=== PATIENT | female | born 1990 | race Caucasian/White ===

== ENCOUNTER → 2019-01-15 19:00 | Observation (INO) ==
[2019-01-15 17:37] LABS: Bilirubin,Urine Negative (Negative); Blood,Urine Negative (Negative); Clarity,Urine Clear (Clear); Color,Urine Yellow (Yellow); Glucose,Urine (UA) Normal (Normal); Ketones,Urine Negative (Negative); Leukocyte Esterase,Urine Negative (Negative); Nitrite,Urine Negative (Negative); PH,Urine 7.5 pH Units (5.0-8.0); Protein,Urine Negative (Neg-Trace); Specific Gravity,Urine 1.012 (1.010-1.025); Urobilinogen,Urine Normal (Normal)
--- NOTE | 2019-01-15 17:42 | OB/GYN Progress Note ---
Date of Encounter: 01/15/19 Time of Encounter: 17:40 - Assessment and Plan (1) Dizziness Current Visit: Yes Status: Acute CBC and Chem WNL. 2 hour PP accucheck 101. Anemia significantly improved. Discharge home with return precautions. She may follow-up in ER for dizziness. (2) 22 weeks gestation of Current Visit: Yes Status: Acute (3) Anemia complicating in second trimester Current Visit: Yes Status: Acute Subjective - Subjective Interval history: 28 year-old G1 presenting at 22w1d with c/o dizziness. She reports she noticed the dizziness and weakness in her legs upon waking this am. She did not have this previously. She was noted to be anemic at time of labs with hgb 9.3 a that time. SHe takes iron daily and vitamins. SHe denies any other complaints. SHe does note a history of migraines. This is also complicated by obesity with BMI 40. Antepartum ROS: movement normal, no loss of fluid, no vaginal bleeding, no contractions Objective - Vital Signs Vital Signs: Intake and Output 01/15/19 01/15/19 01/15/19 07:59 15:59 23:59 Other: Weight 99.6 kg Patient Weight 01/15/19 23:59 Weight 99.6 kg - Exam FHR: auscultation normal FHR comments: FHT 145 BPM Abdomen: Present: soft, gravid. Absent: tenderness Uterus: Absent: tenderness
[2019-01-15 17:58] LABS: Amphetamine Screen,Urine Negative ng/mL (Cutoff=1000); Barbiturate Screen,Urine Negative ng/mL (Cutoff=200); Benzodiazepines Screen,Urine Negative ng/mL (Cutoff=200); Cannabinoid Screen,Urine Negative ng/mL (Cutoff = 50); Cocaine Screen,Urine Negative ng/mL (Cutoff= 300); Opiate Screen,Urine Negative ng/mL (Cutoff=300); Phencyclidine Screen,Urine Negative ng/mL (Cutoff=25)
[2019-01-15 18:04] LABS: Basophils % 0.4 %; Eosinophils # 0.1 K/mcL (0.0-0.6); Hematocrit 37.4 % (35.3-44.9); Hemoglobin 12.6 g/dL (11.5-15.4); Immature Granulocytes % 0.6 % (0-4); Lymphocytes # 2.3 K/mcL (0.6-4.6); Lymphocytes % 21.3 %; Mean Corpuscular HGB Conc 33.7 g/dL (31.6-35.5); Mean Corpuscular Hemoglobin 27.8 pg (28.0-33.3); Mean Corpuscular Volume 82.4 fL (83.0-100.0); Mean Platelet Volume 9.1 fL (9.4-12.4); Monocytes # 0.9 K/mcL (0.0-1.3); Monocytes % 8.6 %; Neutrophils # 7.4 K/mcL (1.6-8.9); Platelet Count 337 K/mcL (140-400); Red Blood Count 4.54 M/mcL (3.82-4.97); Red Cell Distribution Width 21.3 % (11.5-14.5); Segmented Neutrophils % 68.1 %; White Blood Count 10.9 K/mcL (4.3-11.1)
[2019-01-15 18:05] LABS: BUN/Creatinine Ratio 9 (6-26); Blood Urea Nitrogen 4 mg/dL (6-20); Calcium 8.7 mg/dL (8.6-10.3); Carbon Dioxide 22 mEq/L (23-29); Chloride 107 mEq/L (98-107); Glucose 135 mg/dL (70-105); Osmolality,Calculated 287 (280-300); Potassium 3.5 mEq/L (3.5-5.1); Sodium 139 mEq/L (136-145); eGFR For African Americans > 60 (> 60); eGFR For Non-African Americans > 60 (> 60)
== END | disposition home or self-care (01) ==
LOC: 1NENULAB
PROVIDERS: ADMIT Registered Nurse; ATTEND Registered Nurse

== ENCOUNTER 2019-05-12 09:30 | Observation (INO) ==
[2019-05-12] MEDS ORDERED: Ringers Solution, Lactated 1,000 ML IVC ONE (10:10)
[2019-05-12 10:50] LABS: Basophils % 0.3 %; Eosinophils # 0.1 K/mcL (0.0-0.6); Eosinophils % 0.5 %; Hematocrit 46.2 % (35.3-44.9); Hemoglobin 15.7 g/dL (11.5-15.4); Lymphocytes # 1.6 K/mcL (0.6-4.6); Lymphocytes % 16.7 %; Mean Corpuscular Hemoglobin 30.6 pg (28.0-33.3); Mean Corpuscular Volume 90.1 fL (83.0-100.0); Mean Platelet Volume 9.2 fL (9.4-12.4); Monocytes % 9.9 %; Neutrophils # 6.9 K/mcL (1.6-8.9); Platelet Count 297 K/mcL (140-400); Red Blood Count 5.13 M/mcL (3.82-4.97); Red Cell Distribution Width 13.3 % (11.5-14.5); Segmented Neutrophils % 71.6 %; White Blood Count 9.6 K/mcL (4.3-11.1)
[2019-05-12 11:00] LABS: Amphetamine Screen,Urine Negative ng/mL (Cutoff=1000); Barbiturate Screen,Urine Negative ng/mL (Cutoff=200); Benzodiazepines Screen,Urine Negative ng/mL (Cutoff=200); Cannabinoid Screen,Urine Negative ng/mL (Cutoff = 50); Cocaine Screen,Urine Negative ng/mL (Cutoff= 300); Creatinine,Urine 69 mg/dL; Opiate Screen,Urine Negative ng/mL (Cutoff=300); Phencyclidine Screen,Urine Negative ng/mL (Cutoff=25)
[2019-05-12] MEDS ORDERED: Ringers Solution, Lactated 1,000 ML ONE (11:01)
[2019-05-12 11:10] LABS: Alanine Aminotransferase 26 Units/L (7-52); Aspartate Amino Transferase 20 Units/L (13-39); BUN/Creatinine Ratio 13 (6-26); Blood Urea Nitrogen 7 mg/dL (6-20); Lactate Dehydrogenase 192 Units/L (140-271); Uric Acid 4.1 mg/dL (2.3-7.6); eGFR For African Americans > 60 (> 60); eGFR For Non-African Americans > 60 (> 60)
[2019-05-12] MEDS ORDERED: Ringers Solution, Lactated 1,000 ML IVC SCH (11:15)
[2019-05-12] MEDS ORDERED: NIFEdipine 10 MG CAPSULE PO ONE (11:24)
[2019-05-12 11:38] LABS: Bilirubin,Urine Negative (Negative); Blood,Urine Negative (Negative); Color,Urine Yellow (Yellow); Glucose,Urine (UA) Normal (Normal); Ketones,Urine Negative (Negative); Leukocyte Esterase,Urine Negative (Negative); Nitrite,Urine Negative (Negative); PH,Urine 6.5 pH Units (5.0-8.0); Protein,Urine Negative (Neg-Trace); Specific Gravity,Urine 1.007 (1.010-1.025); Urobilinogen,Urine Normal (Normal)
[2019-05-12 11:39] LABS: Bacteria,Urine Moderate per hpf (None-Few); Hyaline Casts,Urine None Seen per lpf (None-Few); Squamous Epithelial Cell,Urine Many per lpf (None-Few)
[2019-05-12 11:40] LABS: Clarity,Urine Clear (Clear)
== END 2019-05-12 12:21 | disposition home or self-care (01) ==
LOC: 1NENULAB
PROVIDERS: ADMIT Advanced Practice Midwife; ATTEND Advanced Practice Midwife

== ENCOUNTER 2019-05-14 22:00 | Inpatient (IN) ==
[2019-05-14] MEDS ORDERED: Naloxone 0.4 MG/ML INJ IVP PRN (22:46)
[2019-05-14] MEDS ORDERED: Metoclopramide 10 MG/2 ML VIAL IVP PRN (22:46)
[2019-05-14] MEDS ORDERED: Famotidine 20 MG/2 ML VIAL IVP PRN (22:46)
[2019-05-14] MEDS ORDERED: Ondansetron 4 MG/2 ML VIAL IVP PRN (22:46)
[2019-05-14] MEDS ORDERED: Lidocaine 1% 20 ML MDV INFILT PRN (22:46)
[2019-05-14] MEDS: miSOPROStoL 25 MCG TABLET PO PRN (23:18)
[2019-05-14 23:23] LABS: Basophils % 0.3 %; Eosinophils # 0.1 K/mcL (0.0-0.6); Eosinophils % 0.6 %; Hematocrit 42.7 % (35.3-44.9); Hemoglobin 14.4 g/dL (11.5-15.4); Immature Granulocytes % 0.8 % (0-4); Lymphocytes # 1.9 K/mcL (0.6-4.6); Lymphocytes % 19.5 %; Mean Corpuscular HGB Conc 33.7 g/dL (31.6-35.5); Mean Corpuscular Hemoglobin 30.9 pg (28.0-33.3); Mean Corpuscular Volume 91.6 fL (83.0-100.0); Mean Platelet Volume 9.6 fL (9.4-12.4); Monocytes # 0.9 K/mcL (0.0-1.3); Monocytes % 9.3 %; Neutrophils # 6.7 K/mcL (1.6-8.9); Platelet Count 306 K/mcL (140-400); Red Blood Count 4.66 M/mcL (3.82-4.97); Red Cell Distribution Width 13.2 % (11.5-14.5); Segmented Neutrophils % 69.5 %; White Blood Count 9.6 K/mcL (4.3-11.1)
[2019-05-14] MEDS ORDERED: Penicillin G Potassium 5,000,000 UNIT in 0.9 % Sodium Chloride Mini Bag 100 ML IVPB ONE (23:58)
[2019-05-15 01:07] LABS: Alanine Aminotransferase 24 Units/L (7-52); Aspartate Amino Transferase 20 Units/L (13-39); BUN/Creatinine Ratio 12 (6-26); Blood Urea Nitrogen 7 mg/dL (6-20); Lactate Dehydrogenase 200 Units/L (140-271); Uric Acid 4.2 mg/dL (2.3-7.6); eGFR For African Americans > 60 (> 60); eGFR For Non-African Americans > 60 (> 60)
[2019-05-15] MEDS: miSOPROStoL 25 MCG TABLET PO PRN (03:24)
[2019-05-15] MEDS: *HR* Nalbuphine 10 MG/ML AMPUL IVP PRN ×2 (03:47→12:00)
[2019-05-15] MEDS: D5% in 0.45% NACL 1,000 ML IVC SCH (03:47)
[2019-05-15] MEDS: miSOPROStoL 25 MCG TABLET VG SCH (08:50)
[2019-05-15] MEDS ORDERED: Bupivacaine-MPF 0.25% 10 ML VIAL EP ONE (11:23)
[2019-05-15] MEDS ORDERED: *HR* FentaNYL (PF) 100 MCG/2 ML VIAL EP ONE (11:23)
[2019-05-15] MEDS ORDERED: Epidural Premix (fent/bupiv) 110 ML EP SCH (11:30)
[2019-05-15] MEDS ORDERED: Ringers Solution, Lactated 1,000 ML ONE ×2 (11:55→18:56)
[2019-05-15] MEDS: Ringers Solution, Lactated 1,000 ML IVC SCH ×2 (12:03→14:20)
[2019-05-15] MEDS ORDERED: *HR* FentaNYL (PF) 100 MCG/2 ML VIAL ONE ×2 (13:11→18:49)
[2019-05-15] MEDS ORDERED: Bupivacaine-MPF 0.25% 10 ML VIAL ONE (13:11)
[2019-05-15] MEDS ORDERED: Oxytocin 20 units/ LR 1000 mL 20 UNIT/1,000 ML BAG IVC ONE (14:16)
[2019-05-15] MEDS: Penicillin G Potassium 2,500,000 UNIT in 0.9 % Sodium Chloride 100 ML IVPB SCH (14:20)
[2019-05-15] MEDS ORDERED: Lidocaine/EPI 1:200k 2% PF 20 ML VIAL ONE (18:44)
[2019-05-15] MEDS ORDERED: *HR* Oxytocin 10 UNIT/ML VIAL IM ONE ×2 (18:56→19:23)
[2019-05-15] MEDS ORDERED: *HR* OxyCODONE/APAP 5/325 TABLET PO PRN (18:57)
[2019-05-15] MEDS ORDERED: Ondansetron 4 MG/2 ML VIAL IVP PRN ×2 (18:57→22:22)
[2019-05-15] MEDS ORDERED: Ibuprofen 400 MG TABLET PO PRN (18:57)
[2019-05-15] MEDS ORDERED: Acetaminophen IV 1,000 MG/100 ML INFUS..BTL IVPB ONE (18:59)
[2019-05-15] MEDS ORDERED: *HR* Morphine Sulfate/PF 10 MG/10 ML AMPUL ONE (19:02)
[2019-05-15] MEDS ORDERED: Ondansetron 4 MG/2 ML VIAL ONE (19:15)
[2019-05-15] MEDS ORDERED: *HR* Phenylephrine 10 MG/ML VIAL ONE (19:16)
[2019-05-15] MEDS ORDERED: Metoclopramide 10 MG/2 ML VIAL IVP PRN (22:22)
[2019-05-15] MEDS ORDERED: Simethicone 80 MG TAB.CHEW PO PRN (22:22)
[2019-05-15] MEDS ORDERED: Sennosides 8.6 MG TABLET PO PRN (22:22)
[2019-05-15] MEDS: Oxytocin 20 units/ LR 1000 mL 20 UNIT/1,000 ML BAG IVC SCH (23:52)
[2019-05-15] MEDS: cefOXitin 2,000 MG in Water for inj. (sterile) 20 ML IVP SCH (23:53)
[2019-05-16] MEDS: Ibuprofen 600 MG TABLET PO PRN ×4 (00:12→18:25)
[2019-05-16 07:07] LABS: Basophils % 0.2 %; Eosinophils % 0.4 %; Hematocrit 35.9 % (35.3-44.9); Immature Granulocytes % 0.4 % (0-4); Lymphocytes # 1.5 K/mcL (0.6-4.6); Lymphocytes % 12.9 %; Mean Corpuscular HGB Conc 34.5 g/dL (31.6-35.5); Mean Corpuscular Hemoglobin 30.9 pg (28.0-33.3); Mean Corpuscular Volume 89.5 fL (83.0-100.0); Mean Platelet Volume 9.4 fL (9.4-12.4); Monocytes # 1.1 K/mcL (0.0-1.3); Monocytes % 9.2 %; Neutrophils # 8.7 K/mcL (1.6-8.9); Platelet Count 246 K/mcL (140-400); Red Blood Count 4.01 M/mcL (3.82-4.97); Red Cell Distribution Width 13.3 % (11.5-14.5); Segmented Neutrophils % 76.9 %; White Blood Count 11.4 K/mcL (4.3-11.1)
[2019-05-16 07:10] LABS: Hemoglobin 12.4 g/dL (11.5-15.4)
[2019-05-16] MEDS: Oxytocin 20 units/ LR 1000 mL 20 UNIT/1,000 ML BAG IVC SCH ×2 (07:21→08:23)
[2019-05-16] MEDS: metroNIDAZOLE 500 MG TABLET PO SCH ×4 (07:21→22:20)
[2019-05-16] MEDS: Ringers Solution, Lactated 1,000 ML IVC SCH ×3 (07:21→07:24)
[2019-05-16] MEDS: D5% in 0.45% NACL 1,000 ML IVC SCH (07:22)
[2019-05-16] MEDS: Penicillin G Potassium 2,500,000 UNIT in 0.9 % Sodium Chloride 100 ML IVPB SCH ×2 (07:22→07:23)
[2019-05-16] MEDS: miSOPROStoL 25 MCG TABLET VG SCH ×2 (07:23→07:24)
[2019-05-16] MEDS: cefOXitin 2,000 MG in Water for inj. (sterile) 20 ML IVP SCH ×2 (08:03→17:07)
[2019-05-16] MEDS: Prenatal Vit/FA 1 EACH TABLET PO SCH (08:04)
[2019-05-16] MEDS: cephALEXin 500 MG CAPSULE PO SCH ×3 (09:54→22:20)
[2019-05-16] MEDS: *HR* OxyCODONE/APAP 5/325 TABLET PO PRN ×4 (09:54→22:38)
[2019-05-17] MEDS: Ibuprofen 600 MG TABLET PO PRN ×2 (01:13→08:03)
[2019-05-17] MEDS: *HR* OxyCODONE/APAP 5/325 TABLET PO PRN (06:04)
[2019-05-17] MEDS: Prenatal Vit/FA 1 EACH TABLET PO SCH (08:02)
[2019-05-17] MEDS: cephALEXin 500 MG CAPSULE PO SCH (08:03)
[2019-05-17] MEDS: metroNIDAZOLE 500 MG TABLET PO SCH (08:03)
[2019-05-17 08:54] VITALS: BP 103/69
== END 2019-05-17 12:21 | disposition home or self-care (01) | DRG 788 ==
LOC: 1NENULAB 22:09 → 1NENUOBS 05-15 22:15
PROVIDERS: ADMIT Student in an Organized Health Care Education/Training Program; ATTEND Obstetrics & Gynecology